=== PATIENT | female | born 1950 | race Caucasian/White ===

== ENCOUNTER 2018-12-28 18:32 | Observation (INO) | payer OTHER ==
[2018-12-28 18:57] LABS: ADD MAN DIFF? NO
[2018-12-28] MEDS: ASPIRIN 81 MG TAB PO (19:00)
[2018-12-28] MEDS ORDERED: NITROGLYCERIN (SL) 0.4 MG TAB SL (19:00)
[2018-12-28] MEDS: NITROGLYCERIN 2% 1 GM OINT PKT TD (19:01)
[2018-12-28 19:02] LABS: BASOPHIL # 0.1 10^3/ul (0.0-0.1); BASOPHILS % 0.9 % (0.0-2.0); EOSINOPHILS # 0.3 10^3/ul (0.0-0.5); EOSINOPHILS % 2.9 % (0.0-7.0); HEMATOCRIT 38.7 % (37.0-47.0); HEMOGLOBIN 13.5 g/dl (12.0-16.0); LYMPHOCYTES # 2.3 10^3/ul (0.8-2.9); LYMPHOCYTES % 22.2 % (15.0-51.0); MEAN CORPUSCULAR HEMOGLOBIN 32.4 pg (29.0-33.0); MEAN CORPUSCULAR HGB CONC 34.9 g/dl (32.0-37.0); MEAN CORPUSCULAR VOLUME 92.8 fl (82.0-101.0); MEAN PLATELET VOLUME 10.1 fl (7.4-10.4); MONOCYTE # 0.5 10^3/ul (0.3-0.9); MONOCYTES % 4.9 % (0.0-11.0); NEUTROPHILS % 68.4 % (39.0-77.0); PLATELET COUNT 262 10^3/UL (140-415); RED BLOOD COUNT 4.17 10^6/ul (4.20-5.40); RED CELL DISTRIBUTION WIDTH 12.2 % (11.5-14.5)
[2018-12-28 19:02] LABS: WHITE BLOOD COUNT 10.2 10^3/ul (4.8-10.8)
[2018-12-28 19:20] LABS: ANION GAP 12 (5-13); BLOOD UREA NITROGEN 18 mg/dl (7-20); CALCIUM 9.8 mg/dl (8.4-10.2); CARBON DIOXIDE 23 mmol/L (21-31); CHLORIDE 103 mmol/L (97-110); CREATININE 1.25 mg/dl (0.44-1.00); Estimated GFR 42 mL/min (>60); GLUCOSE 142 mg/dl (70-220); POTASSIUM 3.7 mmol/L (3.5-5.1); SODIUM 138 mmol/L (135-144)
[2018-12-28 19:32] LABS: TROPONIN-I < 0.012 ng/ml (0.000-0.120)
[2018-12-28] MEDS ORDERED: DOCUSATE SODIUM 100 MG CAP PO (20:00)
[2018-12-28] MEDS ORDERED: ONDANSETRON 4 MG TAB PO (20:00)
[2018-12-28] MEDS ORDERED: NACL 0.9% 3 ML SYG IV (20:00)
[2018-12-28] MEDS ORDERED: BISACODYL (EC) 5 MG TAB PO (20:00)
[2018-12-28] MEDS ORDERED: ONDANSETRON 4 MG INJ IV (20:00)
[2018-12-28] MEDS ORDERED: ACETAMINOPHEN 325 MG TAB PO ×2 (20:00)
[2018-12-28] MEDS: morphine 2 MG INJ IV (21:20)
[2018-12-28] MEDS: NITROGLYCERIN (SL) 0.4 MG TAB SL ×2 (22:30→22:42)
[2018-12-28] MEDS ORDERED: NON-FORMULARY/PATIENT OWN MED (Alprazolam* (Alprazolam* ER) 2 MG) PO (22:30)
[2018-12-28] MEDS: SERTRALINE 100 MG TAB PO (22:50)
[2018-12-28] MEDS: FUROSEMIDE 40 MG TAB PO (22:50)
[2018-12-28] MEDS: RANOLAZINE (SR) 500 MG TAB PO (22:50)
[2018-12-29] MEDS: HEPARIN 5,000 UNIT/1 ML VIAL SC ×4 (00:20→21:13)
[2018-12-29 01:45] LABS: CREATINE KINASE 71 IU/L (23-200)
[2018-12-29 01:57] LABS: CK INDEX 1.1; TROPONIN-I < 0.012 ng/ml (0.000-0.120)
[2018-12-29] MEDS: morphine 2 MG INJ IV ×2 (04:51→17:31)
[2018-12-29] MEDS: NITROGLYCERIN (SL) 0.4 MG TAB SL (05:25)
[2018-12-29] MEDS: FUROSEMIDE 40 MG TAB PO ×2 (05:27→17:27)
[2018-12-29] MEDS: ALPRAZOLAM 1 MG TAB PO ×2 (06:27→20:36)
[2018-12-29 07:22] LABS: ADD MAN DIFF? NO
[2018-12-29 07:26] LABS: WHITE BLOOD COUNT 7.7 10^3/ul (4.8-10.8)
[2018-12-29 07:26] LABS: BASOPHIL # 0.1 10^3/ul (0.0-0.1); BASOPHILS % 0.9 % (0.0-2.0); EOSINOPHILS # 0.4 10^3/ul (0.0-0.5); EOSINOPHILS % 4.8 % (0.0-7.0); HEMATOCRIT 35.2 % (37.0-47.0); HEMOGLOBIN 11.9 g/dl (12.0-16.0); LYMPHOCYTES # 1.8 10^3/ul (0.8-2.9); MEAN CORPUSCULAR HEMOGLOBIN 32.2 pg (29.0-33.0); MEAN CORPUSCULAR HGB CONC 33.8 g/dl (32.0-37.0); MEAN CORPUSCULAR VOLUME 95.4 fl (82.0-101.0); MEAN PLATELET VOLUME 10.6 fl (7.4-10.4); MONOCYTE # 0.5 10^3/ul (0.3-0.9); MONOCYTES % 6.8 % (0.0-11.0); NEUTROPHIL # 4.9 10^3/ul (1.6-7.5); NEUTROPHILS % 63.8 % (39.0-77.0); PLATELET COUNT 213 10^3/UL (140-415); RED BLOOD COUNT 3.69 10^6/ul (4.20-5.40); RED CELL DISTRIBUTION WIDTH 12.4 % (11.5-14.5)
[2018-12-29 07:47] LABS: CREATINE KINASE 62 IU/L (23-200)
[2018-12-29 07:49] LABS: HEMOGLOBIN A1C 5.5 % (0-5.9)
[2018-12-29 07:50] LABS: ALANINE AMINOTRANSFERASE 19 IU/L (13-69); ALBUMIN 4.1 g/dl (3.3-4.9); ALKALINE PHOSPHATASE 61 IU/L (42-121); ANION GAP 16 (5-13); ASPARTATE AMINO TRANSFERASE 18 IU/L (15-46); BILIRUBIN,INDIRECT 0.6 mg/dl (0-1.1); BILIRUBIN,TOTAL 0.6 mg/dl (0.2-1.3); BLOOD UREA NITROGEN 19 mg/dl (7-20); CALCIUM 8.8 mg/dl (8.4-10.2); CARBON DIOXIDE 23 mmol/L (21-31); CHLORIDE 101 mmol/L (97-110); CHOL/HDL RATIO 7.5 RATIO; CHOLESTEROL 287 mg/dl (100-200); CREATININE 1.15 mg/dl (0.44-1.00); Estimated GFR 47 mL/min (>60); GLUCOSE 179 mg/dl (70-220); HDL CHOLESTEROL 38 mg/dl (33-92); MAGNESIUM 1.8 mg/dl (1.7-2.5); POTASSIUM 3.6 mmol/L (3.5-5.1); SODIUM 140 mmol/L (135-144); TOTAL PROTEIN 6.5 g/dl (6.1-8.1)
[2018-12-29 07:57] LABS: CK INDEX 1.5; CK-MB 0.95 ng/ml (0.0-2.4); TROPONIN-I 0.013 ng/ml (0.000-0.120)
[2018-12-29 08:00] LABS: LDL CHOLESTEROL,CALCULATED 126 mg/dl; TRIGLYCERIDES 615 mg/dl (0-149)
[2018-12-29] MEDS: RANOLAZINE (SR) 500 MG TAB PO ×2 (08:39→20:36)
[2018-12-29] MEDS: POTASSIUM CHLORIDE (SR) 8 MEQ CAP PO ×2 (08:39→20:36)
[2018-12-29] MEDS: ARIPIPRAZOLE 2 MG TAB PO (08:39)
[2018-12-29] MEDS: RANITIDINE 150 MG TAB PO (08:40)
[2018-12-29] MEDS: EZETIMIBE 10 MG TAB PO (08:40)
[2018-12-29] MEDS: CLOPIDOGREL 75 MG TAB PO (08:40)
[2018-12-29] MEDS: LEVOTHYROXINE 125 MCG TAB PO (08:40)
[2018-12-29] MEDS: SERTRALINE 100 MG TAB PO ×2 (08:41→20:36)
[2018-12-29] MEDS: ATENOLOL 50 MG TAB PO (08:41)
[2018-12-29] MEDS: LISINOPRIL 10 MG TAB PO (08:41)
[2018-12-29] MEDS: ASPIRIN 81 MG TAB PO (08:42)
[2018-12-29] MEDS ORDERED: ALPRAZOLAM 1 MG TAB PO (09:00)
[2018-12-29] MEDS: IOHEXOL 100 ML (11:59)
[2018-12-29] MEDS: SOD CHLORIDE 0.9% 100 ML (11:59)
[2018-12-29] MEDS: NITROGLYCERIN AEROSOL (4.9 GM) (12:16)
[2018-12-29] MEDS: LAMOTRIGINE 100 MG TAB PO (20:36)
[2018-12-30] MEDS: morphine 2 MG INJ IV ×2 (00:58→06:18)
[2018-12-30] MEDS: FUROSEMIDE 40 MG TAB PO ×2 (06:14→18:07)
[2018-12-30] MEDS: HEPARIN 5,000 UNIT/1 ML VIAL SC ×2 (06:39→15:00)
[2018-12-30] MEDS: ATENOLOL 50 MG TAB PO (09:00)
[2018-12-30] MEDS: LISINOPRIL 10 MG TAB PO (09:00)
[2018-12-30] MEDS: ALPRAZOLAM 1 MG TAB PO (09:35)
[2018-12-30] MEDS: RANOLAZINE (SR) 500 MG TAB PO (09:35)
[2018-12-30] MEDS: LEVOTHYROXINE 125 MCG TAB PO (09:36)
[2018-12-30] MEDS: ASPIRIN 81 MG TAB PO (09:36)
[2018-12-30] MEDS: ARIPIPRAZOLE 2 MG TAB PO (09:36)
[2018-12-30] MEDS: POTASSIUM CHLORIDE (SR) 8 MEQ CAP PO (09:36)
[2018-12-30] MEDS: EZETIMIBE 10 MG TAB PO (09:36)
[2018-12-30] MEDS: SERTRALINE 100 MG TAB PO (09:36)
[2018-12-30] MEDS: CLOPIDOGREL 75 MG TAB PO (09:36)
[2018-12-30] MEDS: PANTOPRAZOLE (EC) 40 MG TAB PO (14:48)
== END 2018-12-30 19:17 | disposition home or self-care (01) ==
LOC: E/R 18:32 → TEL 19:56
DX: N17.9 Acute kidney failure, unspecified (principal); D64.9 Anemia, unspecified; I25.10 Atherosclerotic heart disease of native coronary artery without angina pectoris; I10 Essential (primary) hypertension; E78.5 Hyperlipidemia, unspecified; J44.9 Chronic obstructive pulmonary disease, unspecified; I11.0 Hypertensive heart disease with heart failure; I50.32 Chronic diastolic (congestive) heart failure
CPT/HCPCS: 36415; 71045; 74176; 75574; 80048; 80053; 80061; 82550; 82553; 83036; 83735; 84443; 84484; 85025; 93005; 93306; 99285-25; G0378